=== PATIENT | female | born 2000 | race Caucasian/White ===

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

== ENCOUNTER 2023-12-28 21:26 | Emergency (ER) | payer OTHER ==
[2023-12-28 22:06] LABS: SARS-CoV-2 Antigen CONTROL BLUE LINE VIS/BG OK; SARS-CoV-2 Antigen Rapid Res Negative (Negative)
--- NOTE | 2023-12-28 22:51 | ER ---
Nurse's Notes [facility] Name: Rimma Reza Age: 23 yrs Sex: Female : 2000 Arrival Date: 12/28/2023 Time: 21:26 Bed IW1 Private MD: Diagnosis: Acute pharyngitis, unspecified Presentation: 12/27 21:40 Chief complaint: Patient states: FEVER, SORE THROAT ONSET 4 DAYS AGO. PT REPORTS COUGH. cm10 NO SICK CONTACTS. Coronavirus screen: Client denies travel out of the [place] in the last 14 days. At this time, the client does not indicate any symptoms associated with coronavirus-19. Ebola Screen: Patient denies travel to an Ebola-affected area in the 21 days before illness onset. No symptoms or risks identified at this time. Initial Sepsis Screen: Does the patient meet any 2 criteria? No. Patient's initial sepsis screen is negative. Does the patient have a suspected source of infection? No. Patient's initial sepsis screen is negative. Risk Assessment: Do you want to hurt yourself or someone else? Patient reports no desire to harm self or others. Onset of symptoms was December 28, 2023. 21:40 Method Of Arrival: Ambulatory cm10 21:40 Acuity: JEAN CARLOS 4 cm10 Triage Assessment: 21:42 General: Appears in no apparent distress. comfortable, Behavior is calm, cooperative. cm10 Pain: Complains of pain in THROAT. EENT: Reports pain when swallowing. Neuro: No deficits noted. Level of Consciousness is awake, alert, obeys commands, Oriented to person, place, time, situation, Appropriate for age. Respiratory: No deficits noted. Airway is patent Respiratory effort is even, unlabored, Respiratory pattern is regular, symmetrical. 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 - Infectious Disease History:: Denies. - Social history:: Smoking status: Patient reports the use of cigarette tobacco products, denies chronic smoking, but will smoke occasionally. Screenin:05 [facility] ED Fall Risk Assessment (Adult) History of falling in the last 3 months, cm10 including since admission No falls in past 3 months (0 pts) Confusion or Disorientation No (0 pts) Intoxicated or Sedated No (0 pts) Impaired Gait No (0 pts) Mobility Assist Device Used No (0 pt) Altered Elimination No (0 pt) Score/Fall Risk Level 0 - 2 = Low Risk Oriented to surroundings, Maintained a safe environment, Hourly rounding (assess needs \T\ fall precautionary measures) done. Abuse screen: Denies threats or abuse. Denies injuries from another. Nutritional screening: No deficits noted. Tuberculosis screening: No symptoms or risk factors identified. Assessment: 23:04 Reassessment: Patient appears in no apparent distress at this time. No changes from cm10 previously documented assessment. Patient and/or family updated on plan of care and expected duration. Pain level reassessed. Respiratory: Airway is patent Respiratory effort is even, unlabored, Respiratory pattern is regular, symmetrical, Not auscultated. 23:06 EENT: Throat is pink. cm10 Vital Signs: 21:40 BP 116 / 73; Pulse 80; Resp 16; Temp 98.7(O); Pulse Ox 100% ; Weight 47.63 kg; Height 5 cm10 ft. 5 in. ; Pain 7/10; 21:40 Body Mass Index 17.47 (47.63 kg, 165.1 cm) cm10 21:40 Pain Scale: Adult cm10 ED Course: 21:40 Patient arrived in ED. cm10 21:41 Tahira Britton FNP-C is [facility]. kb 21:41 Sarbjit Barr MD is Attending Physician. kb 21:41 Triage completed. cm10 21:42 Arm band placed on Patient placed in waiting room. cm10 21:47 SARS RAPID Sent. cm10 21:47 Strep Sent. cm10 21:47 COVID swab sent to lab. Strep swab sent to lab. cm10 21:50 Delicia Park, CHANG is Primary Nurse. cm10 23:05 Patient has correct armband on for positive identification. Provided Education on: cm10 follow-up instructions. Cardiac monitoring not applicable on this patient. 23:06 No provider procedures requiring assistance completed. Patient did not have IV access cm10 during this emergency room visit. Administered Medications: No medications were administered Medication: 23:05 VIS not applicable for this client. cm10 Outcome: 22:51 Discharge ordered by MD. kb 23:06 Discharged to home ambulatory, cm10 23:06 Condition: good 23:06 Discharge instructions given to patient, Instructed on discharge instructions, follow up and referral plans. Demonstrated understanding of instructions, follow-up care, 23:06 Patient left the ED. cm10 Signatures: Tahira Britton FNP-Delicia Coffey RN RN cm10 Corrections: (The following items were deleted from the chart) 21:47 21:47 Flu and/or RSV swab sent to lab. Strep swab sent to lab. cm10 cm10
--- NOTE | 2023-12-28 22:51 | EDPHYS ---
Physician Documentation [facility] Name: Rimma Reza Age: 23 yrs Sex: Female : 2000 Arrival Date: 12/28/2023 Time: 21:26 Bed IW1 Private MD: ED Physician Sarbjit Barr HPI: 12/27 22:50 This 23 yrs old Female presents to ER via Ambulatory with complaints of Sore Throat, kb Fever. 22:50 Pt is a 23 year old female who presents for sore throat that started 4 day ago. States kb she had a fever, but it resolved a couple of days ago. Denies cough, congesiton. 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 - Infectious Disease History:: Denies. - Social history:: Smoking status: Patient reports the use of cigarette tobacco products, denies chronic smoking, but will smoke occasionally. ROS: 22:49 Constitutional: As per HPI kb Exam: 22:49 Constitutional: This is a well developed, well nourished patient who is awake, alert, kb and in no acute distress. Head/Face: Normocephalic, atraumatic. ENT: Moist Mucous membranes Cardiovascular: Regular rate Respiratory: Respirations even and unlabored. No increased work of breathing. Talking in full sentences Abdomen/GI: Soft, non-tender. No distention Skin: Warm, dry with normal turgor. Normal color. MS/ Extremity: Pulses equal, no cyanosis. Neurovascular intact. Full, normal range of motion. Neuro: Awake and alert, GCS 15, oriented to person, place, time, and situation. Moves all extremities. Normal gait. Vital Signs: 21:40 BP 116 / 73; Pulse 80; Resp 16; Temp 98.7(O); Pulse Ox 100% ; Weight 47.63 kg; Height 5 cm10 ft. 5 in. ; Pain 7/10; 21:40 Body Mass Index 17.47 (47.63 kg, 165.1 cm) cm10 21:40 Pain Scale: Adult cm10 MDM: 21:41 Patient medically screened. 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 Data reviewed: vital kb signs, nurses notes. I considered the following discharge prescriptions or medication management in the emergency department I discussed and recommended Over The Counter medications, Antibiotics: At this time antibiotics are not recommended, Antivirals: At this time, antivirals are not recommended. Counseling: I had a detailed discussion with the patient and/or guardian regarding the historical points, exam findings, and any diagnostic results supporting the discharge/admit diagnosis, lab results, the need for outpatient follow up, a family practitioner, to return to the emergency department if symptoms worsen or persist or if there are any questions or concerns that arise at home. 12/27 21:43 Order name: Strep 10 12/27 21:43 Order name: SARS RAPID; Complete Time: 22:08 cm10 12/27 22:08 Order name: Throat Culture EDMS Administered Medications: No medications were administered Disposition Summary: 12/28/23 22:51 Discharge Ordered Notes: Location: Home kb Condition: Stable kb Diagnosis - Acute pharyngitis, unspecified kb Followup: kb - With: Private Physician - When: 2 - 3 days - Reason: Recheck today's complaints, Continuance of care, Re-evaluation by your physician Followup: kb - With: Emergency Department - When: As needed - Reason: Worsening of condition Discharge Instructions: - Discharge Summary Sheet kb - Sore Throat kb - Pharyngitis, [id number] kb Forms: - Medication Reconciliation Form kb - Antibiotic Education kb - Prescription Opioid Use kb - Patient Portal Instructions kb - Leadership Thank You Letter kb Signatures: Dispatcher [employer] Tahira Barajas FNP-C FNP-Delicia Lopez, RN RN cm10
[2023-12-29 10:53] VITALS: BP 116/73; TEMP 98.7; O2SAT 100
== END 2023-12-28 23:06 ==
LOC: ER 21:26
DX: J02.9 Acute pharyngitis, unspecified (principal); Z11.52 Encounter for screening for COVID-19
CPT/HCPCS: 36415; 87070; 87081; 87811; 99283

== ENCOUNTER 2024-03-17 08:31 | Emergency (ER) | payer OTHER ==
--- NOTE | 2024-03-17 09:15 | EDPHYS ---
Physician Documentation [facility] Name: Rimma Reza Age: 23 yrs Sex: Female : 2000 Arrival Date: 03/17/2024 Time: 08:31 Bed 18 Private MD: ED Physician Katelyn Cervantes HPI: 03/17 09:09 This 23 yrs old Female presents to ER via Ambulatory with complaints of Sore Throat. sd2 09:09 23 yo F presents with CC of 5 day history of sore throat, painful swallowing and lump sd2 on throat. Reports noticing a swollen lump to the right side of her neck and that the back of her throat was white with subjective fevers. Took Ibuprofen and Tylenol at home. . 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 - Infectious Disease History:: Denies. - Social history:: Smoking status: Patient denies any tobacco usage or history of. ROS: 09:09 Constitutional: Positive for subjective fever. Negative for chills and weight loss. sd2 Eyes: Negative for injury, pain, redness, and discharge, Neck: Negative for injury, Positive for pain, and swelling, Cardiovascular: Negative for chest pain, palpitations, and edema, Respiratory: Negative for shortness of breath, cough, wheezing. MS/Extremity: Negative for injury and deformity, Skin: Negative for injury, rash, and discoloration, Exam: 09:09 Constitutional: This is a well developed, well nourished patient who is awake, alert, sd2 and in no acute distress. Head/Face: Normocephalic, atraumatic. Eyes: EOMI, normal conjunctiva bilaterally 09:09 Neck: Trachea midline, no thyromegaly or masses palpated, and + tender cervical lymphadenopathy. Supple, full range of motion without nuchal rigidity, or vertebral point tenderness. No Meningismus. Skin: Warm, dry with normal turgor. Normal color with no rashes, no lesions, and no evidence of cellulitis. MS/ Extremity: Pulses equal, no cyanosis. Neurovascular intact. Full, normal range of motion. 09:09 ENT: Posterior pharynx: Tonsils: bilaterally enlarged, with erythema, with exudate, Uvula: normal, midline, Vital Signs: 08:37 BP 102 / 68; Pulse 88; Resp 18 S; Temp 98.5(O); Pulse Ox 98% on R/A; Weight 48.53 kg aa5 (R); Height 5 ft. 5 in. (R); 08:37 Body Mass Index 17.81 (48.53 kg, 165.1 cm) aa5 MDM: 09:05 Medical Screening Exam initiated sd2 09:09 Differential diagnosis: strep, viral pharyngitis, RPA, UNDERWRITING INTERN among others. Data reviewed: sd2 vital signs, nurses notes. Counseling: I had a detailed discussion with the patient and/or guardian regarding the historical points, exam findings, and any diagnostic results supporting the discharge/admit diagnosis, the need for outpatient follow up, to return to the emergency department if symptoms worsen or persist or if there are any questions or concerns that arise at home. ED course: Centor criteria based upon exam indicates no need for testing and will treat for strep with amoxicillin and dose of Decadron in ER. Pt comfortable with plan for dc and outpatient follow up and verbalizes understanding of strict return precautions. . Administered Medications: 09:20 Drug: Dexamethasone PO 10 mg PO once Route: PO; bp 09:26 Follow up: Response: No adverse reaction bp Disposition Summary: 03/17/24 09:14 Discharge Ordered Notes: Location: Home sd2 Problem: new sd2 Symptoms: are unchanged sd2 Condition: Stable sd2 Diagnosis - Streptococcal pharyngitis sd2 Followup: sd2 - With: Private Physician - When: 2 - 3 days - Reason: Recheck today's complaints, Continuance of care, Re-evaluation by your physician Discharge Instructions: - Discharge Summary Sheet sd2 - Strep Throat, Adult sd2 Forms: - Work release form aa5 - Medication Reconciliation Form sd2 - Antibiotic Education sd2 - Prescription Opioid Use sd2 - Patient Portal Instructions sd2 - Leadership Thank You Letter sd2 Prescriptions: - Amoxicillin 500 mg Oral capsule - take 1 capsule ORAL route 2 times per day for 10 days; 20 tablet; Refills: 0, sd2 Product Selection Permitted Signatures: Viridiana Hightower, RN RN aa5 Tre Wolfe, RN RN bp Katelyn Cervantes MD MD sd2
--- NOTE | 2024-03-17 09:15 | ER ---
Nurse's Notes [facility] Name: Rimma Reza Age: 23 yrs Sex: Female : 2000 Arrival Date: 03/17/2024 Time: 08:31 Bed 18 Private MD: Diagnosis: Streptococcal pharyngitis Presentation: 03/17 08:37 Chief complaint: Patient states: sore throat that began 4-5 days ago, pt also c/o aa5 headache and neck pain. 08:37 Coronavirus screen: headache, sore throat. Ebola Screen: Patient denies travel to an aa5 Ebola-affected area in the 21 days before illness onset. Initial Sepsis Screen: Does the patient meet any 2 criteria? No. Patient's initial sepsis screen is negative. Does the patient have a suspected source of infection? No. Patient's initial sepsis screen is negative. Risk Assessment: Do you want to hurt yourself or someone else? Patient reports no desire to harm self or others. Onset of symptoms was February 2024. 08:37 Acuity: JEAN CARLOS 3 aa5 08:37 Method Of Arrival: Ambulatory aa5 Triage Assessment: 08:45 General: Appears in no apparent distress. Behavior is cooperative, appropriate for age, bp anxious. Pain: Complains of pain in neck. EENT: Reports pain when swallowing. Neuro: Reports headache. Cardiovascular: No deficits noted. Respiratory: No deficits noted. GI: No signs and/or symptoms were reported involving the gastrointestinal system. : No signs and/or symptoms were reported regarding the genitourinary system. Derm: No deficits noted. Musculoskeletal: No deficits noted. 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 - Infectious Disease History:: Denies. - Social history:: Smoking status: Patient denies any tobacco usage or history of. Screenin:45 [facility] ED Fall Risk Assessment (Adult) History of falling in the last 3 months, bp including since admission No falls in past 3 months (0 pts) Confusion or Disorientation No (0 pts) Intoxicated or Sedated No (0 pts) Impaired Gait No (0 pts) Mobility Assist Device Used No (0 pt) Altered Elimination No (0 pt) Score/Fall Risk Level 0 - 2 = Low Risk Oriented to surroundings. Abuse screen: Denies threats or abuse. Denies injuries from another. Nutritional screening: No deficits noted. Tuberculosis screening: No symptoms or risk factors identified. Assessment: 08:45 General: Appears in no apparent distress. Behavior is cooperative, appropriate for age, bp anxious. Respiratory: Airway is patent Respiratory effort is even, unlabored, Breath sounds are clear bilaterally. EENT: Throat is reddened. Vital Signs: 08:37 BP 102 / 68; Pulse 88; Resp 18 S; Temp 98.5(O); Pulse Ox 98% on R/A; Weight 48.53 kg aa5 (R); Height 5 ft. 5 in. (R); 08:37 Body Mass Index 17.81 (48.53 kg, 165.1 cm) aa5 ED Course: 08:34 Patient arrived in ED. ra3 08:37 Tre Wolfe, RN is Primary Nurse. bp 08:37 Arm band placed on. aa5 08:45 Patient has correct armband on for positive identification. bp 08:50 Triage completed. aa5 09:03 Katelyn Cervantes MD is Attending Physician. bp 09:26 No provider procedures requiring assistance completed. Patient did not have IV access bp during this emergency room visit. Administered Medications: 09:20 Drug: Dexamethasone PO 10 mg PO once Route: PO; bp 09:26 Follow up: Response: No adverse reaction bp Medication: 08:45 VIS not applicable for this client. bp Outcome: 09:14 Discharge ordered by . sd2 09:26 Discharged to home ambulatory, bp 09:26 Condition: stable 09:26 Discharge instructions given to patient, Instructed on discharge instructions, follow up and referral plans. medication usage, Demonstrated understanding of instructions, follow-up care, medications, Prescriptions given X 1, 09:27 Patient left the ED. bp Signatures: Viridiana Hightower, RN RN aa5 Tre Wolfe, RN CHANG bp Katelyn Cervantes MD MD sd2 Coty Alarcon ra3
[2024-03-17] MEDS ORDERED: dexAMETHasone 10 MG/ML VIAL ONE (09:22)
[2024-03-17 20:06] VITALS: BP 102/68; TEMP 98.5; O2SAT 98
== END 2024-03-17 09:27 | disposition home or self-care (01) ==
LOC: ER 08:31
DX: J02.0 Streptococcal pharyngitis (principal)
CPT/HCPCS: 99283; J1100